=== PATIENT | female | born 1945 | race Caucasian/White ===

== ENCOUNTER 2017-08-05 09:00 | Outpatient (CLI) | payer MEDICARE, BC ==
--- NOTE | 2017-08-05 11:24 | BD ---
DEXA BONE DENSITY STUDY: Date: 08/05/17 HISTORY: 72-year-old postmenopausal female for screening for osteoporosis. FINDINGS: Lumbar Spine: BMD (g/cm2) L1 0.784 T-Score: -1.9 L2 0.946 T-Score: -0.7 L3 0.945 T-Score: -1.3 L4 0.952 T-Score: -1.0 L1-L4 0.911 T-Score: -1.2 Femoral Neck: 0.638 T-Score: -1.9 Total Femur: 0.748 T-Score: -1.6 IMPRESSION: Osteopenia. This patient has a 10 year WHO fracture risk for major osteoporotic fracture of 9.8% and for a hip fracture of 2.1%. POS: MOHAMUD
--- NOTE | 2017-08-05 17:25 | MMO ---
BILATERAL MAMMOGRAMS: DATE: 08/05/17 HISTORY: Screening mammography. COMPARISON: 11/07/15 from [facility]. FINDINGS: Scattered fibroglandular densities are present. There is no dominant mass or suspicious calcificatio ns. The study was evaluated with the assistance of computer-aided detection. IMPRESSION: BIRADS 1: Negative Suggest routine follow-up. POS: MOHAMUD
== END 2017-08-05 09:01 | disposition home or self-care (01) ==
LOC: MAMMO 09:00
PROVIDERS: ATTEND Family Medicine
DX: Z12.31 Encounter for screening mammogram for malignant neoplasm of breast (principal); Z78.0 Asymptomatic menopausal state; M85.80 Other specified disorders of bone density and structure, unspecified site
CPT/HCPCS: 77080; G0202; 77067

== ENCOUNTER 2018-08-07 09:21 | Outpatient (CLI) | payer MEDICARE, BC | END 2018-08-07 09:22 | disposition home or self-care (01) | LOC: BICMAMMO 09:21 | PROVIDERS: ATTEND Family Medicine | DX: Z12.31 Encounter for screening mammogram for malignant neoplasm of breast (principal); R92.1 Mammographic calcification found on diagnostic imaging of breast | CPT/HCPCS: 77063; 77067 ==

== ENCOUNTER 2019-08-09 11:19 | Outpatient (CLI) | payer MEDICARE, BC ==
--- NOTE | 2019-08-09 14:15 | MMO ---
Bilateral MAMMO Bilat Screen [facility]. CLINICAL HISTORY: Patient is 74 years old and is seen for screening. The patient has no family history of breast cancer. The patient has no personal history of cancer. VIEWS: The views performed were: bilateral craniocaudal with tomosynthesis and bilateral mediolateral oblique with tomosynthesis. FILMS COMPARED: The present examination has been compared to prior imaging studies performed at [facility] on 05/01/2009, 06/14/2010, 11/07/2015 and 08/07/2018. This study has been interpreted with the assistance of computer-aided detection. MAMMOGRAM FINDINGS: There are scattered fibroglandular densities. There are vascular calcifications seen in both breasts. There are no suspicious masses, suspicious calcifications, or new areas of architectural distortion. IMPRESSION: THERE IS NO MAMMOGRAPHIC EVIDENCE OF MALIGNANCY. A ROUTINE FOLLOW-UP MAMMOGRAM IN 1 YEAR IS RECOMMENDED. THE RESULTS OF THIS EXAM WERE SENT TO THE PATIENT. ACR BI-RADS Category 2 - Benign finding MAMMOGRAPHY NOTE: 1. A negative mammogram report should not delay a biopsy if a dominant of clinically suspicious mass is present. 2. Approximately 10% to 15% of breast cancers are not detected by mammography. 3. Adenosis and dense breasts may obscure an underlying neoplasm. Reported by: HELLEN GOMEZ MD Electonically Signed: [id number]
== END 2019-08-09 11:20 | disposition home or self-care (01) ==
LOC: BICMAMMO 11:19
PROVIDERS: ATTEND Family Medicine
DX: Z12.31 Encounter for screening mammogram for malignant neoplasm of breast (principal)
CPT/HCPCS: 77063; 77067